=== PATIENT | male | born 1985 | race Caucasian/White ===

== ENCOUNTER 2017-01-09 18:04 | Emergency (ER) | payer OTHER ==
--- NOTE | 2017-01-09 18:38 | EDM.PDOC ---
ED HPI GENERAL MEDICAL PROBLEM - General Chief Complaint: Medication Administration Stated Complaint: PT NEEDS MEDICINE Time Seen by Provider: 01/09/17 18:20 Source of Information: Reports: Patient History Limitations: Reports: No Limitations - History of Present Illness INITIAL COMMENTS - FREE TEXT/NARRATIVE: History of present illness: [31-year-old male coming in presenting with complaints of running out of his routine medication he is here for a brief period of time and he indicated that by the time he returns home and has a followup appointment he could be as much as a month he is requesting refill of his Wellbutrin] Review of systems: As per history of present illness and below otherwise all systems reviewed and negative. Past medical history: As per history of present illness and as reviewed below otherwise noncontributory. Surgical history: As per history of present illness and as reviewed below otherwise noncontributory. Social history: No reported history of drug or alcohol abuse. Family history: As per history of present illness and as reviewed below otherwise noncontributory. Physical exam: HEENT: Atraumatic, normocephalic, pupils reactive, negative for conjunctival pallor or scleral icterus, mucous membranes moist, throat clear, neck supple, nontender, trachea midline. Lungs: Clear to auscultation, breath sounds equal bilaterally, chest nontender. Heart: S1S2, regular, negative for clicks, rubs, or JVD. Abdomen: Soft, nondistended, nontender. Negative for masses or hepatosplenomegaly. Negative for costovertebral tenderness. Pelvis: Stable nontender. Genitourinary: Deferred. Rectal: Deferred. Extremities: Atraumatic, negative for cords or calf pain. Neurovascular unremarkable. Neuro: Awake, alert, oriented. Cranial nerves II through XII unremarkable. Cerebellum unremarkable. Motor and sensory unremarkable throughout. Exam nonfocal. Global assessment was benign patient here for med refill Diagnostics: [] Therapeutics: [] Impression: [Refill] Plan: [] Definitive disposition and diagnosis as appropriate pending reevaluation and review of above. - Related Data Allergies Allergy/AdvReac Type Severity Reaction Status Date / Time ceftriaxone [From Rocephin] Allergy Anaphylactic Verified 01/09/17 18:29 Shock Home Meds: Home Meds buPROPion [Wellbutrin] 100 mg PO BID 01/09/17 [History] buPROPion [Wellbutrin] 100 mg PO BID #60 tab 01/09/17 [Rx] Past Medical History - Past Health History Medical/Surgical History: Denies Medical/Surgical History Psychiatric History: Reports: Depression Social & Family History - Family History Family Medical History: Noncontributory - Tobacco Use Smoking Status *Q: Never Smoker - Caffeine Use Caffeine Use: Reports: None - Recreational Drug Use Recreational Drug Use: No ED ROS GENERAL - Review of Systems Review Of Systems: See Below (See history of present illness) ED EXAM, GENERAL - Physical Exam Exam: See Below (See history of present illness) Course - Vital Signs Last Recorded V/S: Last Vital Signs Temp 36.7 C 01/09/17 18:26 Pulse 51 L 01/09/17 18:26 Resp 18 01/09/17 18:26 BP 133/63 01/09/17 18:26 Pulse Ox 94 L 01/09/17 18:26 Departure - Departure Time of Disposition: 18:38 Disposition: Home, Self-Care 01 Condition: good Clinical Impression: Medication refill - Discharge Information Forms: ED Department Discharge Additional Instructions: The following information is given to patients seen in the emergency department who are being discharged to home. This information is to outline your options for follow-up care. We provide all patients seen in our emergency department with a follow-up referral. The need for follow-up, as well as the timing and circumstances, are variable depending upon the specifics of your emergency department visit. If you don't have a primary care physician on staff, we will provide you with a referral. We always advise you to contact your personal physician following an emergency department visit to inform them of the circumstance of the visit and for follow-up with them and/or the need for any referrals to a consulting specialist. The emergency department will also refer you to a specialist when appropriate. This referral assures that you have the opportunity for follow-up care with a specialist. All of these measure are taken in an effort to provide you with optimal care, which includes your follow-up. Under all circumstances we always encourage you to contact your private physician who remains a resource for coordinating your care. When calling for follow-up care, please make the office aware that this follow-up is from your recent emergency room visit. If for any reason you are refused follow-up, please contact the [facility] Emergency Department at and asked to speak to the emergency department charge nurse. Followup the primary care provider Return to ED as needed as discussed
[2017-01-09] MEDS ORDERED: buPROPion 100 MG Tab PO ONE (18:52)
[2017-01-09 19:08] VITALS: BP 130/61
== END 2017-01-09 19:07 | disposition home or self-care (01) ==
LOC: MW.ED 18:04
DX: Z76.0 Encounter for issue of repeat prescription (principal); Z88.1 Allergy status to other antibiotic agents; F32.9 Major depressive disorder, single episode, unspecified
CPT/HCPCS: 99281; A9270

== ENCOUNTER 2017-04-18 23:05 | Emergency (ER) | payer OTHER ==
--- NOTE | 2017-04-18 23:31 | EDM.PDOC ---
ED HPI GENERAL MEDICAL PROBLEM - General Chief Complaint: Medication Administration Stated Complaint: NEED MEDS Time Seen by Provider: 04/18/17 23:30 Source of Information: Reports: Patient - History of Present Illness INITIAL COMMENTS - FREE TEXT/NARRATIVE: HISTORY AND PHYSICAL: History of present illness: Patient presents with history of depression and bipolar disorder, he has been living in [place] for several weeks working for [employer] in the [employer], he was previously on Wellbutrin and was considering change with his psychiatrist down in [place] however due to his move he is out of medication altogether. He has gained an appointment through [facility] to follow with their psychiatrist but was unable to get an appointment until May 06. States he is having some difficulty with feeling tired all of the time does not feel he is able to perform his work duties well. He has no other symptoms such as fever nausea vomiting diarrhea constipation chest pain shortness breath headache dizziness palpitation no bowel or urine symptoms Patient denies suicidal homicidal ideation Patient did have an inpatient stay in [place] where he was diagnosed with bipolar disorder Review of systems: As per history of present illness and below otherwise all systems reviewed and negative. Past medical history: As per history of present illness and as reviewed below otherwise noncontributory. Surgical history: As per history of present illness and as reviewed below otherwise noncontributory. Social history: No reported history of drug or alcohol abuse. Family history: As per history of present illness and as reviewed below otherwise noncontributory. Physical exam: HEENT: Atraumatic, normocephalic, pupils reactive, negative for conjunctival pallor or scleral icterus, mucous membranes moist, throat clear, neck supple, nontender, trachea midline. Lungs: Clear to auscultation, breath sounds equal bilaterally, chest nontender. Heart: S1S2, regular, negative for clicks, rubs, or JVD. Abdomen: Soft, nondistended, nontender. Negative for masses or hepatosplenomegaly. Negative for costovertebral tenderness. Pelvis: Stable nontender. Genitourinary: Deferred. Rectal: Deferred. Extremities: Atraumatic, negative for cords or calf pain. Neurovascular unremarkable. Neuro: Awake, alert, oriented. Cranial nerves II through XII unremarkable. Cerebellum unremarkable. Motor and sensory unremarkable throughout. Exam nonfocal. Diagnostics: []Declines Therapeutics: []Zoloft 25 mg by mouth daily #20 no refill Follow-up with psychiatrist as scheduled on May 06 through [facility] Return if symptoms persist or worsen or if suicidal homicidal ideation develops Impression: []History of depression and bipolar disorder Definitive disposition and diagnosis as appropriate pending reevaluation and review of above. no pain Pain Score (Numeric/FACES): 0 - Related Data Allergies Allergy/AdvReac Type Severity Reaction Status Date / Time ceftriaxone [From Rocephin] Allergy Anaphylactic Verified 04/18/17 23:18 Shock Home Meds: Home Meds buPROPion [Wellbutrin] 200 mg PO BID 04/18/17 [History] Past Medical History - Past Health History Medical/Surgical History: Denies Medical/Surgical History Psychiatric History: Reports: Depression Social & Family History - Family History Family Medical History: Noncontributory - Tobacco Use Smoking Status *Q: Never Smoker - Caffeine Use Caffeine Use: Reports: None - Recreational Drug Use Recreational Drug Use: No ED ROS GENERAL - Review of Systems Review Of Systems: ROS reveals no pertinent complaints other than HPI. ED EXAM, GENERAL - Physical Exam Exam: See Below Course - Vital Signs Last Recorded V/S: Last Vital Signs Temp 36.3 C 04/18/17 23:20 Pulse 82 04/18/17 23:20 Resp 18 04/18/17 23:20 BP 142/66 H 04/18/17 23:20 Pulse Ox 96 04/18/17 23:20 Departure - Departure Time of Disposition: 23:39 Disposition: Home, Self-Care 01 Condition: Good Clinical Impression: Depression - Discharge Information Referrals: PCP,None [Primary Care Provider] - Forms: ED Department Discharge Additional Instructions: Medication as prescribed Return if symptoms persist or worsen Return to ER immediately if suicidal homicidal ideation/thoughts develop Follow-up with psychiatry as scheduled on May 06, 2017 Primary care may be obtained at the phone number below [facility] - [facility] [address] [place] [id number] The following information is given to patients seen in the emergency department who are being discharged to home. This information is to outline your options for follow-up care. We provide all patients seen in our emergency department with a follow-up referral. The need for follow-up, as well as the timing and circumstances, are variable depending upon the specifics of your emergency department visit. If you don't have a primary care physician on staff, we will provide you with a referral. We always advise you to contact your personal physician following an emergency department visit to inform them of the circumstance of the visit and for follow-up with them and/or the need for any referrals to a consulting specialist. The emergency department will also refer you to a specialist when appropriate. This referral assures that you have the opportunity for follow-up care with a specialist. All of these measure are taken in an effort to provide you with optimal care, which includes your follow-up. Under all circumstances we always encourage you to contact your private physician who remains a resource for coordinating your care. When calling for follow-up care, please make the office aware that this follow-up is from your recent emergency room visit. If for any reason you are refused follow-up, please contact the [facility] emergency department at and asked to speak to the emergency department charge nurse.
[2017-04-18 23:55] VITALS: BP 144/73
== END 2017-04-18 23:49 | disposition home or self-care (01) ==
LOC: MW.ED 23:05
DX: F32.9 Major depressive disorder, single episode, unspecified (principal); Z88.1 Allergy status to other antibiotic agents
CPT/HCPCS: 99282

== ENCOUNTER 2017-05-09 18:53 | Emergency (ER) | payer OTHER ==
--- NOTE | 2017-05-09 19:05 | EDM.PDOCBH ---
ED HPI GENERAL MEDICAL PROBLEM - General Chief Complaint: Behavioral/Psych Stated Complaint: MENTAL HEALTH Time Seen by Provider: 05/09/17 19:04 Source of Information: Reports: Patient, Police History Limitations: Reports: No Limitations - History of Present Illness INITIAL COMMENTS - FREE TEXT/NARRATIVE: HISTORY AND PHYSICAL: []31-year-old male brought by EMS and police with suicidal ideations Patient wishes to be sent to [facility] psychiatric care History of Present Illness: []Patient has history of depression and bipolar disorder Patients from [place] and has been in [facility] to work in the [employer] field. Presenting today with suicidal ideations. Review of Systems: As per history of present illness and below otherwise all systems reviewed and negative. Past medical history: As per history of present illness and as reviewed below otherwise noncontributory. Surgical history: As per history of present illness and as reviewed below otherwise noncontributory. Social history: No reported history of drug or alcohol abuse. Family history: As per history of present illness and as reviewed below otherwise noncontributory. Physical exam: HEENT: Atraumatic, normocehpalic, pupils reactive, negative for conjunctival pallor or scleral icterus, mucous membranes moist, throat clear, neck supple, nontender, trachea midline. Lungs: Clear to auscultation, breath sounds equal bilaterally, chest non tender. Heart: S1S2, regular, negative for clicks, rubs, or JVD. Abdomen: Soft, nondistended, nontender. Negative for masses or hepatossplenmegaly. Negative for costovertebral tenderness. Pelvis: Stable nontender. Genitourinary: Deferred. Rectal: Deferred Extremities: Atraumatic, negative for cords or calf pain. Neurovascular unremarkable. Neuro: Awake, alert, oriented. Cranial nerves II through XII unremarkable. Cerebellum unremarkable. Motor and sensory unremarkable throughout. Exam nonfocal. Discussed case with Dr. Mcclure a psychiatrist at [facility] and [place], [place]. His case of self-harm/suicidal ideations and wanting to harm others. Dr. Mcclure agreed this patient needed to be transferred to my note and would contact the emergency room. I've talked to Dr. Harry in [facility] who is also accepted this patient for transfer. Diagnostics: [UA urine drug screen Tylenol level, EtOH,] Therapeutics: [] Impression: [Suicidal ideations Depression Bipolar disorder] Plan: []Transfer for psychiatric care later to self-harm issues well as harming other people Definitive disposition and diagnosis as appropriate pending reevaluation and review of above. - Related Data Allergies Allergy/AdvReac Type Severity Reaction Status Date / Time ceftriaxone [From Rocephin] Allergy Anaphylactic Verified 04/18/17 23:18 Shock Home Meds: Home Meds buPROPion [Wellbutrin] 200 mg PO BID 04/18/17 [History] Sertraline [Zoloft] 50 mg PO DAILY 05/09/17 [History] Past Medical History - Past Health History Medical/Surgical History: Denies Medical/Surgical History HEENT History: Reports: None Cardiovascular History: Reports: None Respiratory History: Reports: None Gastrointestinal History: Reports: None Genitourinary History: Reports: None Musculoskeletal History: Reports: None Neurological History: Reports: None Psychiatric History: Reports: Depression Endocrine/Metabolic History: Reports: None Hematologic History: Reports: None Immunologic History: Reports: None Oncologic (Cancer) History: Reports: None Dermatologic History: Reports: None - Infectious Disease History Infectious Disease History: Reports: None - Past Surgical History Head Surgeries/Procedures: Reports: None HEENT Surgical History: Reports: Myringotomy w Tube(s) Musculoskeletal Surgical History: Reports: Other (See Below) Other Musculoskeletal Surgeries/Procedures:: hip & knee replacement Social & Family History - Family History Family Medical History: Noncontributory - Tobacco Use Smoking Status *Q: Never Smoker - Caffeine Use Caffeine Use: Reports: None - Recreational Drug Use Recreational Drug Use: No ED ROS GENERAL - Review of Systems Review Of Systems: ROS reveals no pertinent complaints other than HPI. ED EXAM, BEHAVIORAL HEALTH - Physical Exam Exam: See Below (see dictation) COURSE, BEHAVIORAL HEALTH COMP - Course Vital Signs: Last Vital Signs Temp 36.7 C 05/09/17 19:07 Pulse 67 05/09/17 19:07 Resp 22 H 05/09/17 19:07 BP 173/84 H 05/09/17 19:07 Pulse Ox 99 05/09/17 19:07 Orders, Labs, Meds: Active Orders 24 hr Category Date Time Status EKG Documentation Completion [RC] STAT Care 05/09/17 19:03 Active ACETAMINOPHEN [CHEM] Stat Lab 05/09/17 19:21 Received COMPREHENSIVE METABOLIC PN,CMP [CHEM] Stat Lab 05/09/17 19:21 Received DRUG SCREEN, URINE [URCHEM] Stat Lab 05/09/17 19:03 Ordered ETHANOL BLOOD MEDICAL [CHEM] Stat Lab 05/09/17 19:21 Received FREE T3 [REF] Stat Lab 05/09/17 19:21 Received MAGNESIUM [CHEM] Stat Lab 05/09/17 19:21 Received SALICYLATE [CHEM] Stat Lab 05/09/17 19:21 Received TSH [CHEM] Stat Lab 05/09/17 19:21 Received UA W/MICROSCOPIC [URIN] Stat Lab 05/09/17 19:03 Ordered Laboratory Tests 05/09/17 Range/Units 19:21 WBC 10.00 (4.0-11.0) K/uL RBC 5.22 (4.50-5.90) M/uL Hgb 15.1 (13.0-17.0) g/dL Hct 45.4 (38.0-50.0) % MCV 87.0 (80.0-98.0) fL MCH 28.9 (27.0-32.0) pg MCHC 33.3 (31.0-37.0) g/dL RDW Std Deviation 45.0 (28.0-62.0) fl RDW Coeff of Senthil 14 (11.0-15.0) % Plt Count 241 (150-400) K/uL MPV 9.80 (7.40-12.00) fL Neut % (Auto) 67.6 (48.0-80.0) % Lymph % (Auto) 22.6 (16.0-40.0) % [place] % (Auto) 7.8 (0.0-15.0) % Eos % (Auto) 1.8 (0.0-7.0) % Baso % (Auto) 0.2 (0.0-1.5) % Neut # (Auto) 6.8 H (1.4-5.7) K/uL Lymph # (Auto) 2.3 (0.6-2.4) K/uL [place] # (Auto) 0.8 (0.0-0.8) K/uL Eos # (Auto) 0.2 (0.0-0.7) K/uL Baso # (Auto) 0.0 (0.0-0.1) K/uL Nucleated RBC % 0.0 /100WBC Nucleated RBCs # 0 K/uL Departure - Departure Time of Disposition: 19:37 Disposition: DC/Tfer to Psych Hosp/Unit 65 Condition: Fair Clinical Impression: Self-harm Depression Qualifiers: Depression Type: other depression Qualified Code(s): F32.89 - Other specified depressive episodes - Discharge Information Referrals: PCP,None [Primary Care Provider] - Forms: ED Department Discharge - My Orders Last 24 Hours: My Active Orders 05/09/17 19:03 EKG Documentation Completion [RC] STAT DRUG SCREEN, URINE [URCHEM] Stat UA W/MICROSCOPIC [URIN] Stat 05/09/17 19:21 ACETAMINOPHEN [CHEM] Stat COMPREHENSIVE METABOLIC PN,CMP [CHEM] Stat ETHANOL BLOOD MEDICAL [CHEM] Stat FREE T3 [REF] Stat MAGNESIUM [CHEM] Stat SALICYLATE [CHEM] Stat TSH [CHEM] Stat - Assessment/Plan Last 24 Hours: My Active Orders 05/09/17 19:03 EKG Documentation Completion [RC] STAT DRUG SCREEN, URINE [URCHEM] Stat UA W/MICROSCOPIC [URIN] Stat 05/09/17 19:21 ACETAMINOPHEN [CHEM] Stat COMPREHENSIVE METABOLIC PN,CMP [CHEM] Stat ETHANOL BLOOD MEDICAL [CHEM] Stat FREE T3 [REF] Stat MAGNESIUM [CHEM] Stat SALICYLATE [CHEM] Stat TSH [CHEM] Stat
[2017-05-09 19:15] VITALS: BP 173/84
[2017-05-09 20:04] LABS: ACETAMINOPHEN < 3.0 ug/mL; CHLORIDE,CL 105 mmol/L (98-110); SODIUM,NA 139 mmol/L (136-146)
== END 2017-05-09 20:30 ==
LOC: MW.ED 18:53
DX: F31.9 Bipolar disorder, unspecified (principal); R45.851 Suicidal ideations; Z88.1 Allergy status to other antibiotic agents; Z79.899 Other long term (current) drug therapy; Z96.22 Myringotomy tube(s) status; Z96.649 Presence of unspecified artificial hip joint; Z96.659 Presence of unspecified artificial knee joint; Z91.5 Personal history of self-harm
CPT/HCPCS: 36415; 80053; 80305; 81001; 83735; 84443; 84481; 85025; 93005; 99285; G0480; 99282